=== PATIENT | female | born 1995 | race Two or more races ===

== ENCOUNTER 2018-06-09 10:16 | Emergency (ER) | payer SELFPAY ==
[2018-06-09] MEDS ORDERED: NS 1,000 ML IV ONE (10:23)
--- NOTE | 2018-06-09 10:30 | EDPHY ---
H & P Stated Complaint: N/V/D gen abd pain since ~ midnight-son was also vomiting - Personal History LMP (Females 10-55): 8-14 Days Ago - Medical/Surgical History Hx Asthma: No Hx Chronic Respiratory Disease: No Hx Diabetes: No Hx Cardiac Disease: No Hx Renal Disease: No Hx Cirrhosis: No Hx Alcoholism: No Hx HIV/AIDS: No Hx Splenectomy or Spleen Trauma: No Other PMH: denies - Social History Smoking Status: Never smoked Time Seen by Provider: 06/09/18 10:23 HPI/ROS: CHIEF COMPLAINT: Nausea vomiting diarrhea since midnight HISTORY OF PRESENT ILLNESS: 22-year-old female generally healthy, no history of abdominal surgeries complaining of nausea vomiting diarrhea since midnight. Her son has been sick recently with similar symptoms. She is complaining of intermittent nonfocal abdominal cramping, none currently. No fever no chills. No chest pain. No dyspnea. No urinary abnormality. Normal urine output. PRIMARY CARE PROVIDER: [facility] REVIEW OF SYSTEMS: 10 systems reviewed and negative with the exception of the elements mentioned in the history of present illness PAST MEDICAL & SURGICAL HISTORY: no history of abdominal surgeries SOCIAL HISTORY: Nonsmoker. No drug use. Son sick with similar. FAMILY HISTORY: No pertinent family history PHYSICAL EXAM (Prior to examination, patient consented to physical exam, hands were washed and my usual and customary physical exam procedures followed) 1) GENERAL: Well-developed, well-nourished, alert and oriented. Appears nontoxic appears well 2) HEAD: Normocephalic, atraumatic 3) HEENT: Pupils equal, round, reactive to light bilaterally. Sclera anicteric. Nasopharynx, oropharynx, clear, no lesions. Dry mucous membranes. 4) NECK: Full range of motion, no meningeal signs. 5) LUNGS: Clear auscultation bilaterally, no wheezes, no rhonchi, no retractions. 6) HEART: Regular rate and rhythm, no murmur, no heave, no gallop. 7) ABDOMEN: No guarding, no rebound, no focal tenderness, negative McBurney's, negative Allison's, negative Rovsing's, negative peritoneal sign, unable to elicit abdominal pain on exam 8) MUSCULOSKELETAL: Moving all extremities, no focal areas of tenderness, no obvious trauma. No peripheral edema or discoloration. 9) BACK: No CVA tenderness, no midline vertebral tenderness, no fluctuance, no step-off, no obvious trauma, no visual or palpable abnormality. 10) SKIN: No rash, no petechiae. 11) Psychiatric: Patient is oriented X 3, there is no agitation. DIFFERENTIAL DIAGNOSIS: My differential diagnosis includes, but is not limited to, acute appendicitis, acute cholecystitis, bowel obstruction, acute pancreatitis, ovarian torsion, ectopic , gastritis and urinary tract infection. The patient understands that this diagnosis is provisional and can never be 100% accurate. This is a partial list of diagnoses considered. These considerations are based on history, physical exam, past history and reassessment. (Rigoberto Haji) Constitutional: Initial Vital Signs Temperature (C) 36.7 C 06/09/18 10:19 Heart Rate 114 H 06/09/18 10:19 Respiratory Rate 16 06/09/18 10:19 Blood Pressure 104/86 H 06/09/18 10:19 O2 Sat (%) 97 06/09/18 10:19 O2 Delivery Mode Room Air Allergies/Adverse Reactions: No Known Allergies Allergy (Verified 06/09/18 10:19) Home Medications: Medication Instructions Recorded Ondansetron Odt [Zofran Odt] 4 mg PO Q4PRN PRN #10 tab 06/09/18 Medical Decision Making ED Course/Re-evaluation: 1:03 p.m.: Re-evaluation. Patient tolerating oral intake. I re-examined her abdomen which is soft no guarding no rebound. Doubt acute [place] [id number] noted however doubt acute appendicitis, acute cholecystitis. More than likely acute neutrophil demargination. I do not think that imaging studies indicated at this time. Plan will be discharged with my usual and customary abdominal precautions instructions, antiemetic prescription. Patient feels comfortable being discharged. Care of patient under supervision of secondary supervising physician Dr Hussein with whom I discussed case. (Rigoberto Haji) I did not see this patient while she was in the emergency department. However her care was discussed with the PA while the patient was in the department. I agree with treatment plan and management (Brian Hussein) - Data Points Laboratory Results: Laboratory Results 06/09/18 10:32 06/09/18 10:32 06/09/18 06/09/18 06/09/18 10:32 10:32 10:32 WBC 17.31 10^3/uL H 10^3/uL (3.80-9.50) RBC 4.67 10^6/uL 10^6/uL (4.18-5.33) Hgb 14.9 g/dL g/dL (12.6-16.3) Hct 44.0 % % (38.0-47.0) MCV 94.2 fL fL (81.5-99.8) MCH 31.9 pg pg (27.9-34.1) MCHC 33.9 g/dL g/dL (32.4-36.7) RDW 12.6 % % (11.5-15.2) Plt Count 241 10^3/uL 10^3/uL (150-400) MPV 10.7 fL fL (8.7-11.7) Neut % (Auto) 92.4 % H % (39.3-74.2) Lymph % (Auto) 3.3 % L % (15.0-45.0) Travis % (Auto) 3.5 % L % (4.5-13.0) Eos % (Auto) 0.3 % L % (0.6-7.6) Baso % (Auto) 0.1 % L % (0.3-1.7) Nucleat RBC Rel Count 0.0 % % (0.0-0.2) Absolute Neuts (auto) 15.99 10^3/uL H 10^3/uL (1.70-6.50) Absolute Lymphs (auto) 0.57 10^3/uL L 10^3/uL (1.00-3.00) Absolute Monos (auto) 0.61 10^3/uL 10^3/uL (0.30-0.80) Absolute Eos (auto) 0.05 10^3/uL 10^3/uL (0.03-0.40) Absolute Basos (auto) 0.02 10^3/uL 10^3/uL (0.02-0.10) Absolute Nucleated RBC 0.00 10^3/uL 10^3/uL (0-0.01) Immature Gran % 0.4 % % (0.0-1.1) Immature Gran # 0.07 10^3/uL 10^3/uL (0.00-0.10) RBC/WBC/PLT Morphology TNP Platelet Estimate TNP Sodium 140 mEq/L mEq/L (135-145) Potassium 3.8 mEq/L mEq/L (3.5-5.2) Chloride 112 mEq/L H mEq/L (97-110) Carbon Dioxide 18 mEq/l L mEq/l (22-31) Anion Gap 10 mEq/L mEq/L (6-14) BUN 20 mg/dL mg/dL (7-23) Creatinine 0.5 mg/dL L mg/dL (0.6-1.0) Estimated GFR > 60 Glucose 107 mg/dL H mg/dL (70-100) Calcium 9.5 mg/dL mg/dL (8.5-10.4) Total Bilirubin 0.5 mg/dL mg/dL (0.1-1.4) Conjugated Bilirubin 0.3 mg/dL mg/dL (0.0-0.5) Unconjugated Bilirubin 0.2 mg/dL mg/dL (0.0-1.1) AST 19 IU/L IU/L (14-46) ALT 18 IU/L IU/L (9-52) Alkaline Phosphatase 136 IU/L H IU/L (38-126) Total Protein 7.9 g/dL g/dL (6.3-8.2) Albumin 4.8 g/dL g/dL (3.5-5.0) Lipase 86 IU/L IU/L (23-300) Beta HCG, Qual NEGATIVE Medications Given: Discontinued Medications Sodium Chloride (Ns) 1,000 mls @ 0 mls/hr IV EDNOW ONE; Wide Open PRN Reason: Protocol Stop: 06/09/18 10:24 Last Admin: 06/09/18 10:33 Dose: 1,000 mls Ondansetron HCl (Zofran) 4 mg IVP EDNOW ONE Stop: 06/09/18 10:33 Last Admin: 06/09/18 10:36 Dose: 4 mg Departure - Departure Disposition: Home, Routine, Self-Care Clinical Impression: Nausea & vomiting Qualifiers: Vomiting type: unspecified Vomiting Intractability: non-intractable Qualified Code(s): R11.2 - Nausea with vomiting, unspecified Condition: Good Instructions: Acute Nausea and Vomiting (ED) Additional Instructions: Seek immediate medical attention if you develop new or worsening symptoms, if you develop fevers, chills, inability to tolerate oral intake or any other symptoms that concerns you. Referrals: [facility],. [Clinic] - 1-2 days without fail Prescriptions: Ondansetron Odt [Zofran Odt] 4 mg PO Q4PRN PRN #10 tab PRN Reason: Nausea
[2018-06-09] MEDS ORDERED: ONDANSETRON 4 MG/2 ML VIAL IVP ONE (10:32)
[2018-06-09 10:47] LABS: PLATELET COUNT 241 10^3/uL (150-400)
[2018-06-09 13:15] VITALS: BP 95/72
== END 2018-06-09 13:15 | disposition home or self-care (01) ==
DX: R11.2 Nausea with vomiting, unspecified (principal); R19.7 Diarrhea, unspecified
CPT/HCPCS: 96374; J2405